=== PATIENT | male | born 1990 | race Caucasian/White ===

== ENCOUNTER 2024-09-19 18:38 | Emergency (ER) | payer BC, SELFPAY ==
[2024-09-19 18:46] VITALS: BP 141/104; PULSE 110; RESP 18; TEMP 37; O2SAT 95; BMI 29.2
--- NOTE | 2024-09-19 19:20 | ED.WOUNDLAC ---
HPI - Wound/Laceration General Chief Complaint: Laceration/Wound Stated Complaint: Axe Injury Time Seen by Provider: 09/19/24 18:40 History of Present Illness HPI narrative: This 34-year-old male comes in with a laceration to his left foot. He was using Axe and accidentally cut into his left foot at the anterior aspect of the area of his ankle joint. He has a 3 cm linear laceration in this area. He does not report any other injury. Related Data Home Medications ?Medication ?Instructions ?Recorded ?Confirmed bupropion HCl 75 mg tablet 75 mg PO DAILY 09/19/24 09/19/24 Allergies Allergy/AdvReac Type Severity Reaction Status Date / Time No Known Drug Allergies Allergy Verified 09/19/24 18:44 Review of Systems Status of ROS: Reports: 10 or more systems reviewed and unremarkable except as noted in History and below Narrative: Constitutional: No fevers, no weight gain or loss. Eyes: No discharge. No vision changes. HENT: No congestion, no sore throat, no ear pain. Cardiovascular: No chest pain, no palpitations. Respiratory: No shortness of breath, no wheezes, no cough. Gastrointestinal: No abdominal pain, no vomiting, no diarrhea. Genitourinary: No dysuria, no hematuria. Musculoskeletal: Normal range of motion. Skin: No rashes, no pruritis. Neurological: No dizziness, weakness, sensory change, speech change. Endo/Heme/Allergies: No bruising or bleeding. No polydipsia. Pysch: no suicidality, no anxiety, no insomnia. All other systems reviewed and are negative. [facility] Social History Smoking Status: Never smoker How often do you have a drink containing alcohol: monthly or less AUDIT-C Alcohol total score: 1 Non-prescribed substance use: marijuana (any form) Non-prescribed substance use details: monthly Exam Narrative: Exam Narrative: Constitutional: Well-developed, well-nourished, no acute distress. HEENT: Normocephalic, atraumatic. Neck: Normal range of motion. Nontender. Supple. Heart: Regular. No murmurs. Normal rate. Intact distal pulses. Lungs: Clear to auscultation. No chest discomfort. No wheezes, rhonchi, or rales. Abdomen: Normal bowel sounds. Nontender. No rebound tenderness. Genitalia: Deferred. Back: No midline tenderness. Normal range of motion. Extremities: Normal range of motion. 3 cm linear laceration over the dorsal aspect of the junction between the foot and leg of his left leg. He has full plantar and dorsiflexion function of his ankle and toes. Skin: Intact. No rash. Warm. No erythema or pallor. Neurologic: No altered sensation. No weakness. Alert and oriented. Psychiatric: No suicidality. No anxiety or depression. No insomnia. Nursing notes and vitals signs are reviewed. Const: Vital Signs, click to edit/add: Vital Signs - 24 hr 09/19/24 18:46 Temperature 98.6 F Pulse Rate [Pulse Oximeter] 110 H Respiratory Rate 18 Blood Pressure [Ri t Upper Arm] 141/104 H Pulse Oximetry 95 Oxygen Delivery Me thod Room Air Course Vital Signs Vital signs: Initial Vital Signs Temperature 98.6 F 09/19/24 18:46 Temperature Source Temporal Artery Scan 09/19/24 18:46 Pulse Rate 110 H 09/19/24 18:46 Respiratory Rate 18 09/19/24 18:46 Blood Pressure 141/104 H 09/19/24 18:46 Blood Pressure Mean 116 H 09/19/24 18:46 Pulse Oximetry 95 09/19/24 18:46 Oxygen Delivery Method Room Air 09/19/24 18:46 Vital Signs Temperature 98.6 F 09/19/24 18:46 Pulse Rate 110 H 09/19/24 18:46 Respiratory Rate 18 09/19/24 18:46 Blood Pressure 141/104 H 09/19/24 18:46 Pulse Oximetry 95 09/19/24 18:46 Oxygen Delivery Method Room Air 09/19/24 18:46 Temperature 98.6 F 09/19/24 18:46 Pulse Rate 110 H 09/19/24 18:46 Respiratory Rate 18 09/19/24 18:46 Blood Pressure 141/104 H 09/19/24 18:46 Pulse Oximetry 95 09/19/24 18:46 Oxygen Delivery Method Room Air 09/19/24 18:46 MDM - Wound/Laceration MDM Narrative Medical decision making narrative: This patient has a laceration that needs repair. After anesthesia with 1% lidocaine IA explored the wound to its base and did notice evidence of a tendon. This tendon is completely ruptured but it is uncertain as to what function it is providing for him. He is able to plantar flex and dorsiflex his ankle and toes normally. Five sutures were placed to approximate the wound edges using 4.0 Ethilon sutures placed in interrupted fashion. I contacted Orthopedic physician's assistant front desk manager manager convention regarding the tendon injury. A follow-up plan will be made with the clinic next week to further explore this injury. He may need an MRI to evaluated. The patient was placed in a walking boot and stated that he is okay to ambulate on this leg but the boot will prevent flexion and extension that may further the injury. Discharge Plan Discharge Clinical Impression: Laceration, Injury of tendon of foot Patient Disposition: Home, Self-Care Condition: Improved Additional Instructions: Wear walking boot for ambulating to avoid plantar flexion or dorsiflexion of the ankle and toes. Follow-up with orthopedic clinic. Someone will give a call to arrange appointment on Saturday morning. You may call if you wish also by dialing [phone]. Prescriptions: No Action bupropion HCl 75 mg tablet 75 mg PO DAILY Rx Instructions: administer 6 hours apart Stand Alone Forms: [employer] Info Instructions
--- OUTSIDE RECORDS SUMMARY | 2024-09-19 20:03 | XMS_ITS | Clinical Summary ---
Author Organization [facility] Address [address] [place] [id number] Care Team Providers Care Full Service Supervisor Name Role Phone Matthew Whittaker MD Unavailable Jayy Jay MD Primary Care Provider [phone] Allergies Active Allergy Reactions Criticality Noted Date Comments Cats (Fur, Dander, Saliva) Itching Low 8 Chlorine Runny Nose Low 05/24/2023 Dust Mites Runny Nose Low 06/30/2017 Medications multivitamin capsule Take 1 capsule by mouth once daily. 0 08/13/2011 Active traZODone (DESYREL) 100 mg tablet Take 100 mg by mouth at bedtime. Active mirtazapine (REMERON) 15 mg tablet Take 15 mg by mouth once daily. Active FLUoxetine (PROzac) 20 mg capsule Take 20 mg by mouth once daily. Active Active Problems Problem Noted Date Diagnosed Date Autism spectrum disorder 05/24/2023 Anxiety 01/02/2017 Depression, recurrent 01/01/2017 Kidney stones 04/17/2013 Patellofemoral syndrome, left 06/13/2010 Hypertriglyceridemia Resolved Problems Problem Noted Date Diagnosed Date Resolved Date Left knee pain 06/13/2010 01/01/2017 Immunizations Immunization Administration Dates Next Due COVID-19 VACCINE SPIKEVAX (M ODERNA 50MCG/0.5ML) 12YO+ PFS 05/24/2023 COVID-19 vaccine (George-J&J) NICOLA GARCÍA COVID-19 vaccine (Moderna 100mcg/0.5mL) PF, MDV 04/13/2021 COVID-19 vaccine (Moderna 50 mcg/0.5mL) 12YO+ BIVALENT PF, MDV 03/07/2022 DTaP 09/30/2006, 6,09/24/1992,09/14,1991,1991 Hepatitis A (Peds) 11/05/2008 Hepatitis B, Unspecified 03/14/1997,10/26/1996,0 08/24/1996 Hib Conjugate, Unspecified 06/24/1992,,1991,07/13 Human Papilloma Virus Vaccine 09/26/2012 Influenza, IIV4 (=>6mos) MDV 02/15/2023,04/15/20 22 MMR 01/30/1996,06/24/1992 Meningococcal Vaccine (Menactra) 11/21/2006 Polio Virus, Unspecified 01/30/1996,09/10,1991,05/23 Td (Age >=7 Years) 10/01/2007,09/10/2003 Tdap 05/24/2023,03/06/2012,09/30/2006 Varicella Vaccine 04/19/1995 Family History * Patient is adopted Relation Name Status Comments Father Mother Social History Tobacco Use Types Packs/Day Years Used Date Smoking Tobacco: Never Smokeless Tobacco: Never Alcohol Use Standard Drinks/Week Comments Not Currently 0 (1 standard drink = 0.6 oz pur e alcohol) PHQ-2 Answer Date Recorded PHQ-2 TOTAL SCORE 0 05/24/2023 Sex and Gender Information Value Date Recorded Sex Assigned at Not on file Legal Sex Male 7:34 AM RISK MANAGEMENT PROFESSIONAL Gender Identity Not on file Sexual Orientation Not on file 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 Not on file Not on file Not on file Deirdre Henderson Not on file Not on file Not on file Obstetrics History Last Filed Vital Signs Vital Sign Reading Time Taken Comments Blood Pressure 122/66 08/28/2023 3:09 PM CDT Pulse 72 05/24/2023 10:45 AM RISK MANAGEMENT PROFESSIONAL Temperature 37.1 C (98.7 F) 09/20/2015 4:18 PM CDT Respiratory Rate 16 09/01/2014 10:18 PM CDT Oxygen Saturation 98% 09/01/2014 10:18 PM CDT Inhaled Oxygen Concentration - - Weight 73.5 kg (162 lb) 08/28/2023 3:09 PM CDT Height 162.6 cm (5' 4) 08/28/2023 3:09 PM CDT Body Mass Index 27.81 08/28/2023 3:09 PM CDT Plan of Treatment Health Maintenance Due Date Last Done Comments COVID-19 vaccine series ( season) 2024 05/24/2023, 03/07/2022, 04/13/2021, Additional history exists Depression screening for age 12+ 05/24/2024 05/24/2023, 02/08/2017, 01/02/2017, Additional history exists BMI (ht and wt on same day) for age 18+ 08/27/2024 08/28/2023, 08/14/2023, 05/24/2023, Additional history exists Influenza Vaccine (Season Ended) 2025 02/15/2023, 04/15/2022 Tetanus booster 05/24/2033 05/24/2023, 02/11, 10/01/2007, Additional history exists Hepatitis C screening for age 18-79 Completed 12/07/2016 HIV for age 15-65 Completed 05/24/2023, 12/07/2016 Tdap Completed 05/24/2023, 02/11, 09/30/2006 Pneumococcal series for age 6-49 Aged Out No longer eligible based on patient's age to complete this topic Procedures Procedure Name Priority Date/Time Associated Diagnosis Comments ANTI HIV 1/2 Routine 05/24/2023 11:47 AM RISK MANAGEMENT PROFESSIONAL Routine screening for STI (sexually transmitted infection) ANTI HCV Routine 12/07/2016 5:52 PM CDT Screen for STD (sexually transmitted disease) from Last 3 Months or Most Recently Relevant to Health Maintenance Results * HIV 1/2 antibodies (05/24/2023 11:47 AM RISK MANAGEMENT PROFESSIONAL) HIV-1/HIV-2 SCREEN Non-Reacti ve Non-Reacti ve 05/24/2023 10:51 PM RISK MANAGEMENT PROFESSIONAL [facility] Comment:HIV-1 p24 and HIV-1/ HIV-2 Ab Not Detected. Blood BLOOD SPECIMEN / Unknown Venipuncture / Unknown 05/24/2023 11:47 AM RISK MANAGEMENT PROFESSIONAL 05/24/2023 11:50 AM RISK MANAGEMENT PROFESSIONAL Jayy Jay MD SEND OUTS Final Res ult [facility] [address] [place] [address], [place] * ANTI HCV (12/07/2016 5:52 PM CDT) [facility] HEPATITIS C ANTIBODY Non-Reacti ve Non-Reacti ve 12/08/2016 5:20 PM CDT [facility] Blood BLOOD SPECIMEN / Unknown Venipuncture / Unknown 12/07/2016 5:52 PM CDT 12/07/2016 5:52 PM CDT Narrative [facility] - 12/08/2016 5:20 PM CDT Antibodies to HCV not detected; does not exclude the possibility of exposure to HCV. us [place] MIN SEND OUTS Final Result Performing Organization Address City/[facility]/ZIP Co de Phone Number [facility] [address] [place] [address], from Last 3 Months or Most Recently Relevant to Health Maintenance Insurance [place] [address] [employer] [place] [id number] Care Teams Full Service Supervisor Relationship Specialty Start Date End Date Jayy Jay MD [address] [facility] [address] [place] [address] PCP - General Internal Medicine 05/24/23 Matthew Whittaker MD [address] [facility] [address] [place] [address] Psychiatry 05/24/23
--- OUTSIDE RECORDS SUMMARY | 2024-09-19 20:04 | XMS_ITS | Clinical Summary ---
Author Organization [facility] Address [address] [place] [address] Care Team Providers Care Event Crew Technician Name Role Phone None, Md Primary Care Provider Unavailabl e Allergies Active Allergy Reactions Criticality Noted Date Comments Cat Dander 03/26/2017 Chlorine Runny Nose Low 05/24/2023 Dust/Dust Mites (Jorge) 03/26/2017 Medications Melatonin 5 mg oral tablet Take 1 tablet (5 mg) by mouth once a day as needed. Active buPROPion XL (WELLBUTRIN XL) 150 mg oral extended release tablet 24 HR Take 1 tablet (150 mg) by mouth once daily. 07/27/2024 Active cyclobenzaprine (FLEXERIL) 10 mg oral tablet Take 1 tablet (10 mg) by mouth three times a day as needed. 30 tablet 08/02/2024 Active naproxen (NAPROSYN) 500 mg oral tablet Take 1 tablet (500 mg) by mouth twice a day as needed. 40 tablet 08/02/2024 Active Active Problems Problem Noted Date Diagnosed Date Autism spectrum disorder Moderate episode of recurrent major depressive d isorder Moderately severe major depression Encounters Date Type Department Care Team Description 08/02/2024 2:20 PM CDT Urgent Care Visit [facility] [address] [phone] Deshawn Valerio PA-C Acute right-sided low back pain with right-sided sciatica (Primary Dx) 08/02/2024 Travel from Last 3 Months Social History Tobacco Use Types Packs/Day Years Used Date Smoking Tobacco: Never Smokeless Tobacco: Never Sex and Gender Information Value Date Recorded Sex Assigned at Not on file Legal Sex Male 12:51 PM CDT Gender Identity Not on file Sexual Orientation Not on file Last Filed Vital Signs Vital Sign Reading Time Taken Comments Blood Pressure 125/84 08/02/2024 2:33 PM CDT Pulse 84 08/02/2024 2:33 PM CDT Temperature 37.1 C (98.8 F) 08/02/2024 2:33 PM CDT Respiratory Rate 16 08/02/2024 2:33 PM CDT Oxygen Saturation 98% 08/02/2024 2:33 PM CDT Inhaled Oxygen Concentration - - Weight 62.1 kg (137 lb) 03/26/2017 6:15 PM ORTHODONTIC BAND MAKER Height 162.6 cm (5' 4) 08/02/2024 2:33 PM CDT Body Mass Index 23.52 03/26/2017 6:15 PM ORTHODONTIC BAND MAKER Plan of Treatment Health Maintenance Due Date Last Done Comments Anxiety Screening (RANGEL-2) 1992 Depression Follow-Up (PHQ-9) 1992 COVID-19 Vaccine ( season) 2024 05/24/2023, 03/07/2022, 04/13/2021, Additional history exists Influenza Vaccine (Season Ended) 2025 02/15/2023, 04/15/2022 Adult Tetanus Booster 05/24/2033 05/24/2023 , 03/06/2012, 10/01/2007, Additional history exists RSV Vaccines (1 - 1-dose 75+ series) 2066 Hepatitis C Screening Completed 12/07/2016 Pneumococcal Vaccine Aged Out No long er eligible based on patient's age to complete this topic Insurance [employer] OPEN ACCESS/[place] [address] [facility] Care Teams Event Crew Technician Relationship Specialty Start Date End Date None, PCP - General 08/02/24
--- OUTSIDE RECORDS SUMMARY | 2024-09-19 20:04 | XMS_ITS | Referral Summary ---
Author Organization [facility] Address [address] [place] [address] Care Team Providers Care Field Geologist Name Role Phone None, Primary Care Provider Unavailabl e Encounters Date Type Department Care Team Description 08/02/2024 Travel 08/02/2024 2:20 PM CDT Urgent Care Visit [facility] [place] [address] [phone] Deshawn Valerio, PAMariam Acute right-sided low back pain with right-sided sciatica (Primary Dx) from Last 3 Months Allergies Active Allergy Reactions Criticality Noted Date [...] depressive d isorder Moderately severe major depression Social History Tobacco Use Types Packs/Day Years [...] 62.1 kg (137 lb) 03/26/2017 6:15 PM WINDOWS ADMIN Height 162.6 cm (5' 4) 08/02/2024 2:33 PM CDT Body Mass Index 23.52 03/26/2017 6:15 PM WINDOWS ADMIN Plan of Treatment Not on file Insurance Locationary OPEN ACCESS/CHOICE [place] [id number] [facility] [address] [employer]/MNCARE Member Subscriber Plan / Payer (Ef fective 2024-Present) Name:Mari Gunderson Relation to Subscriber:Self Name:Mari Gunderson Payer ID:[id number] (NAIC) Group ID:[id number] Type:[facility] Address: [place] [phone] [place] [id number] Care Teams Field Geologist Relationship Specialty Start Date End Date None, PCP - General 08/02/24
== END 2024-09-19 20:00 | disposition home or self-care (01) ==
LOC: ED 20:02
PROVIDERS: Emergency Provider Emergency Medicine Emergency Medical Services
DX: S91.312A Laceration without foreign body, left foot, initial encounter (principal); S96.922A Laceration of unspecified muscle and tendon at ankle and foot level, left foot, initial encounter; W27.0XXA Contact with workbench tool, initial encounter
CPT/HCPCS: 12002; 99283; 99284